=== PATIENT | male | born 1980 | race Caucasian/White ===

== ENCOUNTER 2018-07-26 10:42 | Emergency (ER) | payer SELFPAY ==
[2018-07-26 10:50] VITALS: TEMP 98.5; BMI 31.7
--- NOTE | 2018-07-26 11:30 | PDOC ---
History of Present Illness - General Chief Complaint: Pain, Acute Stated Complaint: RT SIDE TESTICULAR PAIN Time Seen by Provider: 07/26/18 11:11 Past History - Travel Traveled outside of the country in the last 30 days: No Close contact w/someone who was outside of country & ill: No - Past Medical History Allergies/Adverse Reactions: Allergies Allergy/AdvReac Type Severity Reaction Status Date / Time No Known Allergies Allergy Verified 07/26/18 10:50 - Suicide/Smoking/Psychosocial Hx Smoking History: Never smoked Have you smoked in the past 12 months: No Information on smoking cessation initiated: No Hx Alcohol Use: No Drug/Substance Use Hx: No *Physical Exam - Vital Signs Last Vital Signs Temp Pulse Resp BP Pulse Ox 98.5 F 84 18 131/72 97 07/26/18 10:45 07/26/18 10:45 07/26/18 10:45 07/26/18 10:45 07/26/18 10:45 *DC/Admit/Observation/Transfer Diagnosis at time of Disposition: Hydrocele Qualifiers: Hydrocele type: unspecified Qualified Code(s): N43.3 - Hydrocele, unspecified - Discharge Dispostion Disposition: HOME Condition at time of disposition: Stable Decision to Admit order: No - Referrals Referrals: Malvin Olvera MD [Staff Physician] - - Patient Instructions Printed Discharge Instructions: DI for Hydrocele-Adult Additional Instructions: You ultrasound showed a hydrocele on your right testicle, or a small fluid pocket You may take Motrin 600mg every 6 hours as needed for pain. You may apply cool packs to the area for relief of pain Please follow up with urology for further evaluation. A referral has been provided to you Return to the ED for worsening pain, if the testicle becomes larger, fever, vomiting, abdominal pain or if you have any changes in your symptoms La ecografa mostr un hidrocele en el testculo derecho o chriss pequea [place] de [place]qu[place] Puede dick Motrin 600 mg cada 6 horas segn sea necesario para el dolor. Puede aplicar compresas fras en el usha para aliviar el dolor. Por favor brinda un seguimiento con urologa para chriss evaluacin adicional. Se le hendricks proporcionado chriss referencia Regrese a la liberty de emergencias para empeorar el dolor, si el testculo se agranda, fiebre, vmitos, dolor abdominal o si tiene algn cambio en romulo sntomas. Print Language: FRENCH - Post Discharge Activity
[2018-07-26 12:39] LABS: URINE APPEARANCE CLEAR; URINE BACTERIA 0.7 /hpf (NEGATIVE); URINE BILIRUBIN NEGATIVE (NEGATIVE); URINE CASTS 1 /lpf (0-8); URINE COLOR YELLOW; URINE GLUCOSE (UA) NEGATIVE (NEGATIVE); URINE KETONE NEGATIVE (NEGATIVE); URINE LEUK ESTERASE TRACE (NEGATIVE); URINE NITRITE NEGATIVE (NEGATIVE); URINE PROTEIN NEGATIVE (NEGATIVE); URINE RBC 1 /hpf (0-4); URINE WBC 2 /hpf (0-5)
[2018-07-26] MEDS ORDERED: IBUPROFEN 600 MG TABLET (FP) PO ONE ×2 (14:16→14:18)
[2018-07-26 15:29] VITALS: BP 126/73; PULSE 50
== END 2018-07-26 15:31 | disposition home or self-care (01) ==
LOC: JER 10:42
DX: N43.3 Hydrocele, unspecified (principal)
CPT/HCPCS: 76870-TC; 81003; 99282-25

== ENCOUNTER 2020-03-05 10:35 | Emergency (ER) | payer OTHER ==
[2020-03-05 10:47] VITALS: BP 122/93; PULSE 74; TEMP 98.4; BMI 32.3
[2020-03-05] MEDS ORDERED: METHOCARBAMOL 500 MG TABLET PO ONE (11:26)
[2020-03-05] MEDS ORDERED: NAPROXEN 500 MG TABLET PO ONE (11:26)
[2020-03-05] MEDS ORDERED: METHOCARBAMOL 500 MG TABLET ONE (11:55)
[2020-03-05] MEDS ORDERED: NAPROXEN 500 MG TABLET ONE (11:55)
== END 2020-03-05 12:00 | disposition home or self-care (01) ==
LOC: JER 10:35
DX: U07.1 COVID-19 (principal); M54.5 Low back pain
CPT/HCPCS: 99284-25